=== PATIENT | male | born 1940 | race American Indian/Alaskan Native ===

== ENCOUNTER 2017-08-26 10:12 | Day surgery (SDC) | payer MEDICARE ==
[~2017-08-26 10:12] MED LIST: ADRENALIN ONE; ANCEF/STERILE WATER 2 GM/20 ML 2 GM/20 ML SYRINGE IV SCH; MARCAINE 0.25% INFILTRATI ONE; MARCAINE-EPI 0.25%-1:200,000 INFILTRATI ONE
[2017-08-26] MEDS ORDERED: SUBLIMAZE IV ONE (11:00)
[2017-08-26] MEDS ORDERED: LACTATED RINGERS 1,000 ML IV SCH (11:00)
[2017-08-26] MEDS ORDERED: VERSED IV NR (11:00)
[2017-08-26] MEDS ORDERED: NEURONTIN PO NR (11:00)
[2017-08-26] MEDS ORDERED: MARCAINE 0.5% INFILTRATI NR (11:00)
[2017-08-26] MEDS ORDERED: MARCAINE 0.5% 30 ML INFILTRATI ONE (12:04)
[2017-08-26] MEDS ORDERED: CLONIDINE 1,000 MCG/10 ML VIAL EP ONE (12:05)
[2017-08-26] MEDS ORDERED: SUBLIMAZE ONE (12:28)
[2017-08-26] MEDS ORDERED: DIPRIVAN 10 MG/ML IV ONE (12:29)
[2017-08-26] MEDS ORDERED: XYLOCAINE MPF 2% ONE (12:30)
[2017-08-26] MEDS ORDERED: ZEMURON IV ONE (12:31)
[2017-08-26] MEDS ORDERED: NEO SYNEPHRINE/NS Syringe(OR USE) IV ONE (13:00)
[2017-08-26] MEDS ORDERED: ePHEDrine SULFATE ONE (13:07)
[2017-08-26] MEDS ORDERED: ADRENALIN IR ONE (13:10)
--- NOTE | 2017-08-26 13:25 | Anesthesia Consultation ---
Anesthesia Consult and Med Hx Date of service: 08/26/17 - Airway Anesthetic Teeth Evaluation: Good ROM Head & Neck: Adequate Mental/Hyoid Distance: Adequate Mallampati Class: Class I Intubation Access Assessment: Good - Pulmonary Exam CTA: Yes - Cardiac Exam Cardiac Exam: RRR - Pre-Operative Health Status ASA Pre-Surgery Classification: ASA3 Proposed Anesthetic Plan: General - Pulmonary Hx Smoking: Yes (STOPPED X 60 YRS) Hx Sleep Apnea: No (TERESA PRE SCREEN HIGH RISK) - Cardiovascular System Hx Hypertension: Yes (X 12 YRS) Hx Heart Attack/AMI: No Hx Angina: No Hx Pacemaker: Yes Hx Heart Murmur: Yes - Central Nervous System Hx Back Pain: Yes - Endocrine Hx Hypothyroidism: Yes
--- NOTE | 2017-08-26 13:25 | Anesthesia Day of Surgery ---
Anesthesia Day of Surgery - Day of Surgery Patient Examined: Yes Patient H&P Reviewed: Yes Patient is NPO: Yes
[2017-08-26] MEDS ORDERED: MARCAINE-EPI 0.25%-1:200,000 INFILTRATI ONE (13:40)
[2017-08-26] MEDS ORDERED: ZOFRAN ONE (13:48)
[2017-08-26] MEDS ORDERED: ROBINUL ONE ×2 (13:48→14:02)
[2017-08-26] MEDS ORDERED: NEOSTIGMINE ONE ×2 (13:48→14:02)
[2017-08-26 17:06] VITALS: BP 100/62
--- NOTE | 2017-08-26 18:41 | Operative Report ---
PREOPERATIVE DIAGNOSES: Left shoulder with impingement biceps tendinitis and rotator cuff tear. POSTOPERATIVE DIAGNOSES: 1. Left shoulder with marked subacromial impingement bursitis. 2. Partial thickness rotator cuff tear articular surface - 25%. 3. Extensive biceps tendon tearing. 4. Anterior labral tear. PROCEDURE PERFORMED: 1. Left shoulder arthroscopy with arthroscopic subacromial bursectomy and decompression. 2. Arthroscopic biceps tenotomy. 3. Arthroscopic debridement of rotator cuff tear and labral tear. SURGEON: Kemar Whitaker M.D. [employer]: Roosevelt Garcia CSA. ANESTHESIA: General. ESTIMATED BLOOD LOSS: Minimal. COMPLICATIONS: None. DESCRIPTION OF PROCEDURE: The patient underwent successful induction of anesthesia. Following this, he was then carefully positioned in beach chair position and prepped and draped in usual fashion. Antibiotics were pre-administered. Arthroscopy was carried out utilizing standard posterior portals. Entry made through the triangular space under direct vision. Systematic examination of the joint was carried out. This demonstrated the findings noted. Articular surface relatively well preserved. Subscap demonstrated a longitudinal tearing superiorly, but it was well attached. The supraspinatus demonstrated a tear of the anterior aspect. Approximately 20-25% of articular surface was gently debrided. Infraspinatus was intact. Labrum demonstrated an anterior labral fraying, which was also debrided. The biceps tendon demonstrated marked tearing longitudinal extending all the way into the groove. This was not only attenuated but demonstrated at least 60% tearing along with longitudinal striations. Given the nature of this pattern, I was felt best to proceed with biceps tenotomy. This was then released and debrided also proximal a centimeter that completely retracted well into the groove. No impingement was noted. At this point in time, the arthroscope was placed in the subacromial space of the posterior portal. He was noted to have subacromial bursitis and a type 2-3 acromion. Through the straight lateral portal, decompression was affected with an excellent flushed surface with the cutting block technique. The outer surface of the cuff was meticulously debrided of the root of the bursitis. There was no evidence of rotator cuff tear whatsoever. Intraoperative photos were obtained for documentation. The arthroscopic instruments were removed and ports were closed with nylon sutures. Sterile dressing was applied and taken to the recovery room in satisfactory condition having tolerated the procedure well. [facility]# [id number] RDP/NTS
== END 2017-08-26 16:32 | disposition home or self-care (01) ==
LOC: OR 10:12
PROVIDERS: ATTEND Orthopaedic Surgery
DX: M75.42 Impingement syndrome of left shoulder (principal); S46.012A Strain of muscle(s) and tendon(s) of the rotator cuff of left shoulder, initial encounter; S46.112A Strain of muscle, fascia and tendon of long head of biceps, left arm, initial encounter; S43.492A Other sprain of left shoulder joint, initial encounter; I10 Essential (primary) hypertension; E03.9 Hypothyroidism, unspecified; Z79.899 Other long term (current) drug therapy; Z88.5 Allergy status to narcotic agent; Z87.891 Personal history of nicotine dependence; Z95.0 Presence of cardiac pacemaker; X58.XXXA Exposure to other specified factors, initial encounter; Y93.89 Activity, other specified; Y92.89 Other specified places as the place of occurrence of the external cause; Y99.8 Other external cause status
CPT/HCPCS: 29823; 29826; 82962; J0171; J0690; J0735; J2250; J2370; J2405; J2704; J2710; J3010; J7120